=== PATIENT | female | born 2000 | race Caucasian/White ===

== ENCOUNTER 2020-07-08 12:27 | Emergency (ER) | payer OTHER, MEDICAID ==
[2020-07-08] MEDS ORDERED: Ketorolac 30 MG/ML SDV IVPUSH STA (12:41)
[2020-07-08] MEDS ORDERED: Ondansetron 4 MG/2 ML SDV IVPUSH STA (12:41)
[2020-07-08] MEDS ORDERED: Sodium Chloride 0.9% 1,000 ML IV SCH (13:00)
--- NOTE | 2020-07-08 13:21 | EDM.PDOC ---
ED HPI GENERAL MEDICAL PROBLEM - General Chief Complaint: Neuro Symptoms/Deficits Stated Complaint: HEAD HURTS,VOMITING Time Seen by Provider: 07/08/20 12:35 Source of Information: Reports: Patient, Family History Limitations: Reports: No Limitations - History of Present Illness INITIAL COMMENTS - FREE TEXT/NARRATIVE: Patient presented to the ED because of headache,nausea, and vomiting. The headache is over the frontal area,throbbing,8/10, with associated photophobia. Her headache got worse when she used the computer for her midterms. - Related Data Allergies Allergy/AdvReac Type Severity Reaction Status Date / Time .allergy med Allergy Cannot Uncoded 07/08/20 12:33 Remember Home Meds: Home Meds Ondansetron [Zofran ODT] 4 mg PO Q4H PRN #5 tab.dis 07/08/20 [Rx] Social & Family History - Tobacco Use Tobacco Use Status *Q: Never Tobacco User - Caffeine Use Caffeine Use: Reports: None - Recreational Drug Use Recreational Drug Use: No ED ROS GENERAL - Review of Systems Review Of Systems: See Below Constitutional: Reports: No Symptoms HEENT: Reports: No Symptoms Respiratory: Reports: No Symptoms Cardiovascular: Reports: No Symptoms Endocrine: Reports: No Symptoms GI/Abdominal: Reports: Nausea, Vomiting Musculoskeletal: Reports: No Symptoms Skin: Reports: No Symptoms Neurological: Reports: Headache Psychiatric: Reports: No Symptoms ED EXAM, GENERAL - Physical Exam Exam: See Below Exam Limited By: No Limitations General Appearance: Alert, No Apparent Distress Ears: Normal External Exam, Normal Canal Nose: Normal Inspection, Normal Mucosa, No Blood Throat/Mouth: Normal Inspection, Normal Lips Head: Atraumatic, Normocephalic Neck: Normal Inspection, Supple, Non-Tender, Full Range of Motion Respiratory/Chest: No Respiratory Distress, Lungs Clear, Normal Breath Sounds, No Accessory Muscle Use, Chest Non-Tender Cardiovascular: Normal Peripheral Pulses, Regular Rate, Rhythm, No Edema, No Gallop, No JVD, No Murmur, No Rub GI/Abdominal: Normal Bowel Sounds, Soft, Non-Tender, No Organomegaly, No Distention, No Abnormal Bruit, No Mass Back Exam: Normal Inspection, Full Range of Motion Extremities: Normal Inspection, Normal Range of Motion, Non-Tender, No Pedal Edema, Normal Capillary Refill Neurological: Alert, Oriented, CN II-XII Intact, Normal Cognition, Normal Gait, Normal Reflexes, No Motor/Sensory Deficits Psychiatric: Normal Affect Skin Exam: Warm Course - Vital Signs Text/Narrative:: Lab result was discussed with patient NS 1 L bolus Zofran 4 mg IV x1 Toradol 30 mg IV x1 Last Recorded V/S: Last Vital Signs Temp 36.6 C 07/08/20 12:27 Pulse 79 07/08/20 12:27 Resp 16 07/08/20 12:27 BP 119/76 07/08/20 12:27 Pulse Ox 98 07/08/20 12:27 - Orders/Labs/Meds Orders: Active Orders 24 hr Category Date Time Status BASIC METABOLIC PANEL,BMP [CHEM] Stat Lab 07/08/20 12:43 Ordered CBC WITH AUTO DIFF [HEME] Stat Lab 07/08/20 12:43 Ordered Sodium Chloride 0.9% [Normal Saline] 1,000 ml Med 07/08/20 13:00 Active IV ASDIRECTED Medication Orders Sodium Chloride (Normal Saline) 1,000 mls @ 999 mls/hr IV ASDIRECTED MARION Last Admin: 07/08/20 13:00 Dose: 999 mls/hr Documented by: NAYELI Meds: Medications Generic Name Dose Route Start Last Admin Trade Name Freq PRN Reason Stop Dose Admin Sodium Chloride 1,000 mls @ 999 mls/hr 07/08/20 13:00 07/08/20 13:00 Normal Saline IV 999 mls/hr ASDIRECTED MARION Administration Discontinued Medications Generic Name Dose Route Start Last Admin Trade Name Freq PRN Reason Stop Dose Admin Ketorolac Tromethamine 30 mg 07/08/20 12:41 07/08/20 12:46 Ketorolac 30 Mg/Ml Sdv IVPUSH 07/08/20 12:42 30 mg NOW STA Administration Ondansetron HCl 4 mg 07/08/20 12:41 07/08/20 12:46 Ondansetron 4 Mg/2 Ml Sdv IVPUSH 07/08/20 12:42 4 mg NOW STA Administration Departure - Departure Time of Disposition: 13:45 Disposition: Home, Self-Care 01 Condition: Good Clinical Impression: Migraine - Discharge Information Prescriptions: Ondansetron [Zofran ODT] 4 mg PO Q4H PRN #5 tab.dis PRN Reason: Nausea Instructions: Migraine Headache Additional Instructions: Please read discharge instructions on Migraine Take zofran ODT 4 mg every 4 hours as needed for nausea Ibuprofen 800 mg with tylenol 1000 mg every 8 hours as needed for headache Follow up as needed Sepsis Event Note (ED) - Evaluation Sepsis Screening Result: No Definite Risk - Focused Exam Vital Signs: Vital Signs Temp Pulse Resp BP Pulse Ox 07/08/20 12:27 36.6 C 79 16 119/76 98 - My Orders Last 24 Hours: My Active Orders 07/08/20 12:43 BASIC METABOLIC PANEL,BMP [CHEM] Stat CBC WITH AUTO DIFF [HEME] Stat 07/08/20 13:00 Sodium Chloride 0.9% [Normal Saline] 1,000 ml IV ASDIRECTED - Assessment/Plan Last 24 Hours: My Active Orders 07/08/20 12:43 BASIC METABOLIC PANEL,BMP [CHEM] Stat CBC WITH AUTO DIFF [HEME] Stat 07/08/20 13:00 Sodium Chloride 0.9% [Normal Saline] 1,000 ml IV ASDIRECTED
[2020-07-08] MEDS ORDERED: SUMAtriptan 6 MG/0.5 ML SDV SUBCUT STA (13:27)
== END 2020-07-08 14:15 | disposition home or self-care (01) ==
LOC: FB.ED 12:27
DX: G43.909 Migraine, unspecified, not intractable, without status migrainosus (principal); Z88.8 Allergy status to other drugs, medicaments and biological substances
CPT/HCPCS: 36415; 80048; 84702; 85025; 96372; 96374; 96375; 99284; J1885; J2405; J3030; J7030